=== PATIENT | male | born 1960 | race Caucasian/White ===

== ENCOUNTER 2017-07-24 12:21 | Outpatient (CLI) | payer OTHER, SELFPAY ==
--- NOTE | 2017-07-24 14:24 | RAD ---
LEFT KNEE TWO VIEWS: History: Left knee pain. FINDINGS: There is mild joint space narrowing at the medial and lateral compartments with mild osteophytosis. N o acute fracture, dislocation, or fluid distention of the joint capsule are evident. IMPRESSION: Mild osteoarthritic changes left knee. POS: [facility]
--- NOTE | 2017-07-24 15:40 | RAD ---
LUMBAR SPINE THREE VIEWS: HISTORY: Disability evaluation and back pain. FINDINGS: Mild degenerative changes are seen. No fracture, subluxation, or bony destruction is identified. POS: [facility]
== END 2017-07-24 12:22 | disposition home or self-care (01) ==
LOC: NAV RAD 12:21
PROVIDERS: ATTEND Family Medicine
DX: M25.562 Pain in left knee (principal); M54.5 Low back pain; M47.896 Other spondylosis, lumbar region; M17.12 Unilateral primary osteoarthritis, left knee
CPT/HCPCS: 72100